=== PATIENT | female | born 1990 | race Caucasian/White ===

== ENCOUNTER 2019-04-23 19:20 | Emergency (ER) | payer OTHER ==
[~2019-04-23] VITALS: Ht 160 cm; Wt 134.1 kg
[2019-04-23 19:39] VITALS: Ht 160 cm; Wt 134.1 kg
[2019-04-23] MEDS ORDERED: VRAYLAR (19:40)
[2019-04-23 20:14] LABS: BASOPHILS 0.6 % (0-2); EOSINOPHILS 1.6 % (0-7); HEMOGLOBIN 14.9 g/dL (12-16); IMMATURE GRANULOCYTES 0.3 % (0-5); LYMPHOCYTES 29.1 % (15-50); MCH 31.1 pg (26.0-34.0); MCHC 33.1 g/dL (31.0-37.0); MCV 93.9 fL (80.0-100.0); MEAN PLATELET VOLUME 10.7 fL (7.4-10.4); MONOCYTES 5.3 % (2-11); NEUTROPHILS 63.1 % (40-80); RBC 4.79 10x6/uL (4.00-5.40); RDW 12.8 % (11.5-14.5); WBC 8.7 10x3/uL (4.8-10.8)
[2019-04-23 20:32] LABS: PLATELET COUNT 275 10x3/uL (130-400)
[2019-04-23 20:33] LABS: CALC OSMOLALITY 288 mosm/kg (275-300); CALCIUM 9.4 mg/dL (8.5-10.1); CARBON DIOXIDE 30.5 mmol/L (21.0-32.0); CHLORIDE - SERUM 103 mmol/L (98-107); CREATININE - SERUM 1.1 mg/dL (0.6-1.3); GLUCOSE 125 mg/dL (74-106); SODIUM 144 mmol/L (136-145); UREA NITROGEN 16 mg/dL (7-18); eGFR NON AFRICAN AMERICAN 63 mL/min (90-120)
[2019-04-23 20:42] LABS: ALKALINE PHOSPHATASE 43 U/L (46-116); ALT (SGPT) 65 U/L (10-68); AMYLASE - SERUM 38 U/L (25-115); BILIRUBIN - TOTAL 0.31 mg/dL (0.2-1.3); LIPASE 191 U/L (73-393); PROTEIN - SERUM 8.3 g/dL (6.4-8.2); TROPONIN-I < 0.017 ng/mL (0.000-0.060)
[2019-04-23 20:54] LABS: HCG SERUM NEGATIVE (NEGATIVE)
[2019-04-23] MEDS ORDERED: BENTYL 20 MG TA20 MG PO (22:19)
[2019-04-23 22:51] VITALS: BP 148/75
== END 2019-04-23 22:54 | disposition home or self-care (01) ==
LOC: D.ER 19:20
PROVIDERS: Family Medicine
DX: R10.12 Left upper quadrant pain (principal)